=== PATIENT | male | born 1950 ===

== ENCOUNTER 2018-08-18 09:20 | Day surgery (SDC) | payer MEDICARE, BC ==
[2018-08-18] MEDS ORDERED: ACETAZOLAMIDE 250 MG PO ONE (09:23)
[2018-08-18] MEDS: CYCLOPENTOLATE 1% SOL ONE ×2 (09:32→09:46)
[2018-08-18] MEDS: KETOROLAC 0.5% OPTH 60 DROP SOL ONE ×2 (09:32→09:46)
[2018-08-18] MEDS: PHENYLEPHRINE HCL 10% OPHTHAL SOL ONE ×2 (09:32→09:45)
[2018-08-18] MEDS: PROPARACAINE HCL 0.5% OPHTHALMIC SOL ONE ×3 (09:32→10:39)
[2018-08-18] MEDS ORDERED: MIDAZOLAM 2 MG/2 ML SOL ONE (10:08)
[2018-08-18] MEDS ORDERED: FENTANYL 100MCG/2ML SOL ONE (10:08)
[2018-08-18] MEDS ORDERED: POVIDONE IODINE 5% SOL ONE (10:32)
[2018-08-18] MEDS ORDERED: LIDOCAINE HCL 1% MPF 30 SOL ONE (10:32)
[2018-08-18] MEDS ORDERED: BSS 500 ML 500 ML IR ONE (10:32)
[2018-08-18] MEDS ORDERED: IMPRIMIS ONE (10:32)
[2018-08-18] MEDS ORDERED: OFLOXACIN 0.3% OPHTHAL 1 DROP SOL LEFTEYE ONE (10:55)
[2018-08-18 11:22] VITALS: RESP 20; TEMP 98
[2018-08-18 11:37] VITALS: BP 138/70; PULSE 37; O2SAT 96
== END 2018-08-18 11:40 | disposition home or self-care (01) | DRG 125 ==
LOC: SURG 09:20
PROVIDERS: ATTEND Ophthalmology
DX: H25.89 Other age-related cataract (principal)
CPT/HCPCS: 93005; J2250; J3010; A9270-GY; J2001

== ENCOUNTER 2018-09-22 07:02 | Day surgery (SDC) | payer MEDICARE, BC ==
[2018-09-22] MEDS ORDERED: ACETAZOLAMIDE 250 MG PO ONE (07:16)
[2018-09-22 07:38] VITALS: RESP 16
[2018-09-22] MEDS: PROPARACAINE HCL 0.5% OPHTHALMIC SOL ONE ×3 (07:41→08:47)
[2018-09-22] MEDS: CYCLOPENTOLATE 1% SOL ONE ×2 (07:41→07:57)
[2018-09-22] MEDS: PHENYLEPHRINE HCL 10% OPHTHAL SOL ONE ×2 (07:42→07:57)
[2018-09-22] MEDS: KETOROLAC 0.5% OPTH 60 DROP SOL ONE ×2 (07:42→07:57)
[2018-09-22] MEDS ORDERED: FENTANYL 100MCG/2ML SOL ONE (08:21)
[2018-09-22] MEDS ORDERED: MIDAZOLAM 2 MG/2 ML SOL ONE (08:22)
[2018-09-22] MEDS ORDERED: BSS 500 ML 500 ML IR ONE (08:42)
[2018-09-22] MEDS ORDERED: LIDOCAINE HCL 1% MPF 30 SOL ONE (08:42)
[2018-09-22] MEDS ORDERED: POVIDONE IODINE 5% SOL ONE (08:42)
[2018-09-22] MEDS: IMPRIMIS ONE ×2 (09:00→09:06)
[2018-09-22] MEDS ORDERED: OFLOXACIN 0.3% OPHTHAL 1 DROP SOL RIGHTEYE ONE ×2 (09:02→09:07)
[2018-09-22 09:18] VITALS: BP 149/90; PULSE 75; TEMP 98; O2SAT 97
== END 2018-09-22 09:30 | disposition home or self-care (01) | DRG 125 ==
LOC: SURG 07:02
PROVIDERS: ATTEND Ophthalmology
DX: H25.89 Other age-related cataract (principal)
CPT/HCPCS: J2250; J3010; A9270-GY; J2001

== ENCOUNTER 2019-01-12 07:50 | Day surgery (SDC) | payer MEDICARE, BC ==
[~2019-01-12 07:50] MED LIST: LIDOCAINE HCL 1% MPF 30 SOL ONE; PROPOFOL 500 MG/50 ML EMU IV ONE
[2019-01-12 08:20] VITALS: RESP 20
[2019-01-12] MEDS ORDERED: PROPOFOL 10 MG/ML 200 MG/20 ML EMU IV ONE (10:14)
[2019-01-12 10:40] VITALS: TEMP 97.6
[2019-01-12 11:04] VITALS: BP 174/84; PULSE 63; O2SAT 98
== END 2019-01-12 11:15 | disposition home or self-care (01) | DRG 812 ==
LOC: SURG 07:50
PROVIDERS: ATTEND Internal Medicine Gastroenterology
DX: D50.9 Iron deficiency anemia, unspecified (principal); K22.10 Ulcer of esophagus without bleeding; K44.9 Diaphragmatic hernia without obstruction or gangrene; L53.8 Other specified erythematous conditions; K31.7 Polyp of stomach and duodenum; K57.30 Diverticulosis of large intestine without perforation or abscess without bleeding; K64.8 Other hemorrhoids
CPT/HCPCS: J2001; J2704

== ENCOUNTER 2019-03-09 09:29 | Day surgery (SDC) | payer MEDICARE, BC ==
[2019-03-09 10:10] VITALS: TEMP 97.2
[2019-03-09 11:59] VITALS: BP 167/93; PULSE 54; RESP 20; O2SAT 98
== END 2019-03-09 12:06 | disposition home or self-care (01) | DRG 392 ==
LOC: SURG 09:29
PROVIDERS: ATTEND Internal Medicine Gastroenterology
DX: K21.9 Gastro-esophageal reflux disease without esophagitis (principal); K22.10 Ulcer of esophagus without bleeding; Q39.9 Congenital malformation of esophagus, unspecified; K44.9 Diaphragmatic hernia without obstruction or gangrene; L53.9 Erythematous condition, unspecified; K31.7 Polyp of stomach and duodenum
CPT/HCPCS: J2001; J2704